=== PATIENT | female | born 1990 | race Caucasian/White ===

== ENCOUNTER 2021-05-29 07:00 | Day surgery (SDC) | payer BC ==
[2021-05-29] VITALS (12 sets, daily range): BP systolic 96–131; BP diastolic 57–79; PULSE 72–96; TEMP 98.6
[~2021-05-29] VITALS: Ht 162.7 cm; Wt 70.5 kg
--- NOTE | 2021-05-29 07:20 | NUR ---
35.6, G1L0 here for cerclage removal. Ambulatory to LDR3 with spouse. Oriented to room and POC. Reports normal movement, and irregular ctx. Denies any LOF, VB. Changes into clean gown. EFM explained and placed. Assessment completed. VS obtained. Consent forms explained and signed.
[2021-05-29 07:38] LABS: BASO % 0.2 % (0.0-2.0); EOS % 0.2 % (0-4.0); GRAN # 4.3 (1.4-6.5); GRAN % 51.9 % (42.2-75.2); HEMOGLOBIN 11.4 g/dl (12.5-16.0); LYMPH # 3.4 (1.2-3.4); LYMPH % 40.6 % (20.0-51.0); MEAN CELL VOLUME 89 fl (80.0-100.0); MEAN CORPUSCULAR HEMOGLOBIN 29 pg (27.0-31.0); MEAN CORPUSCULAR HGB CONC 32 g/dl (33.0-37.0); MONO # 0.6 (0.1-0.6); MONO % 6.9 % (1.7-9.3); PLATELET COUNT 59 K/mm3 (130-400); RED BLOOD COUNT 3.95 M/mm3 (4.10-5.30); REDCELL DISTRIBUTION WIDTH-CV 14.1 % (11.5-14.5)
[2021-05-29 07:39] LABS: HEMATOCRIT 35.3 % (37.0-47.0)
[2021-05-29] MEDS ORDERED: DIABETA 2.5MG2.5 MG PO (07:41)
[2021-05-29] MEDS ORDERED: PREDNISONE20 MG PO (07:41)
--- NOTE | 2021-05-29 08:10 | NUR ---
0810- EFM off. To OR suite via bed.
--- NOTE | 2021-05-29 08:41 | NUR ---
0841- To LDR3 via bed. Monitors applied. Report fromCaleb Esquivel CRNA. 0845- Dr. Perdomo at bedside. POC reviewed with patient and SO who verbalize understanding.
--- NOTE | 2021-05-29 10:30 | NUR ---
Dr. Perdomo remains on unit and reviews strips. Okay to dischage patient home with instructions.
--- NOTE | 2021-05-29 10:35 | NUR ---
FHR reactive. GBS obtained. EFM off.
--- NOTE | 2021-05-29 10:50 | NUR ---
Discharge instructions reviewed with patient and SO who verbalize understanding. Ambulatory off unit with private vehicle.
== END 2021-05-29 10:50 | disposition home or self-care (01) ==
LOC: SDCO 07:00 → LDR 07:00 → SDCO 10:50
PROVIDERS: Obstetrics & Gynecology
DX: O34.33 Maternal care for cervical incompetence, third trimester (principal); O24.415 Gestational diabetes mellitus in pregnancy, controlled by oral hypoglycemic drugs; Z3A.35 35 weeks gestation of pregnancy; Z20.822 Contact with and (suspected) exposure to COVID-19; Z79.899 Other long term (current) drug therapy
CPT/HCPCS: OP; J0702; J7120

== ENCOUNTER 2021-05-30 08:00 | Outpatient (CLI) | payer BC ==
[~2021-05-30] VITALS: Ht 162.6 cm; Wt 70.5 kg
[~2021-05-30 08:00] MED LIST: DIABETA 2.5MG2.5 MG PO; PREDNISONE20 MG PO
--- NOTE | 2021-05-30 08:10 | NUR ---
Pt arrived on unit ambulatory for scheduled NST and second dose of betamethasone. Pt reports occasional contractions but no pain with them, denies any leaking of fluid or vaginal bleeding and reports normal movement. EFM and toco monitor started. Vital signs WNL. Plan of care for NST, labs and beta reviewed.
[2021-05-30 08:36] LABS: BASO % 0.1 % (0.0-2.0); GRAN # 5.4 (1.4-6.5); GRAN % 67.9 % (42.2-75.2); HEMOGLOBIN 10.7 g/dl (12.5-16.0); LYMPH # 2.1 (1.2-3.4); LYMPH % 25.6 % (20.0-51.0); MEAN CELL VOLUME 91 fl (80.0-100.0); MEAN CORPUSCULAR HEMOGLOBIN 29 pg (27.0-31.0); MEAN CORPUSCULAR HGB CONC 31 g/dl (33.0-37.0); MONO # 0.5 (0.1-0.6); PLATELET COUNT 61 K/mm3 (130-400); RED BLOOD COUNT 3.74 M/mm3 (4.10-5.30); REDCELL DISTRIBUTION WIDTH-CV 14.2 % (11.5-14.5)
[2021-05-30 08:38] LABS: HEMATOCRIT 34.1 % (37.0-47.0)
--- NOTE | 2021-05-30 08:38 | NUR ---
Spoke with Dr. Perdomo. Lab results and FHR tracing reviewed. Orders for discharge after 20 more minutes of monitoring.
[2021-05-30 09:00] VITALS: BP 129/82; PULSE 107; TEMP 98.2
== END 2021-05-30 09:10 | disposition home or self-care (01) ==
LOC: LDRO 08:00 → LDR 08:00 → LDRO 09:10
PROVIDERS: Obstetrics & Gynecology
DX: O36.8330 Maternal care for abnormalities of the fetal heart rate or rhythm, third trimester, not applicable or unspecified (principal)
CPT/HCPCS: OP; J0702

== ENCOUNTER 2021-06-04 00:58 | Inpatient (IN) | payer BC ==
[2021-06-04] VITALS (36 sets, daily range): BP systolic 101–136; BP diastolic 55–87; PULSE 59–120; TEMP 97.6–98.9
[~2021-06-04] VITALS: Ht 162.6 cm; Wt 68.6 kg
--- NOTE | 2021-06-04 01:30 | NUR ---
0110 G1 at 36.5 weeks gestation to LDR3 with c/o contractions since 2099. She had a cerclage placed at 23 weeks for a shortened cervix. This was removed on 05/29. At the time of removal the patient was dilated to 2cm. At this time she recieved betamethasone and a GBS culture was collected and is negative. 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 EFMs explained and applied. Patient reports good movement. FHR 130 bpm and reactive. CTX q6-8 minutes. VSS. SVE 4/90 with a bulgy bag. Patient denies leaking of fluid or vaginal bleeding. She is uncomfortable with contractions and breathing through them. Plan of care reviewed with patient and spouse. She is aware that she can not get an epidural if her platelets are low.
[2021-06-04 02:07] LABS: EOS % 0.1 % (0-4.0); GRAN # 5.5 (1.4-6.5); GRAN % 58.6 % (42.2-75.2); HEMATOCRIT 37.5 % (37.0-47.0); HEMOGLOBIN 12.3 g/dl (12.5-16.0); LYMPH # 3.1 (1.2-3.4); LYMPH % 32.4 % (20.0-51.0); MEAN CELL VOLUME 88 fl (80.0-100.0); MEAN CORPUSCULAR HEMOGLOBIN 29 pg (27.0-31.0); MEAN CORPUSCULAR HGB CONC 33 g/dl (33.0-37.0); MEAN PLATELET VOLUME 14.1 fl (7.4-10.4); MONO # 0.8 (0.1-0.6); MONO % 8.5 % (1.7-9.3); RED BLOOD COUNT 4.25 M/mm3 (4.10-5.30); REDCELL DISTRIBUTION WIDTH-CV 14.1 % (11.5-14.5)
[2021-06-04 02:22] LABS: PLATELET COUNT 69 K/mm3 (130-400)
--- NOTE | 2021-06-04 07:00 | NUR ---
Rests in bed, alert. Dr. Miller here, visits with patient. [address] Miller. Moderate amount of clear fluid noted. States dilated to 7. Pad changed, and annika-care given.
--- NOTE | 2021-06-04 08:00 | NUR ---
Rests in bed, alert. 0802 Stadol 1 mg given iv as ordered and per request. Breathes through contractions.
--- NOTE | 2021-06-04 09:00 | NUR ---
Ambulates to the bathroom and back. Stands at bedside rocking.
--- NOTE | 2021-06-04 09:30 | NUR ---
Stands at the bedside.0303 Dr. Miller here, visits with patient. Vag exam done, dilated to eight.
--- NOTE | 2021-06-04 10:00 | NUR ---
1008 Stadol 1 mg iv given as ordered.
--- NOTE | 2021-06-04 10:20 | NUR ---
Pitocin 0.5 alana units iv started as ordered.
--- NOTE | 2021-06-04 10:45 | NUR ---
Unable to put 1.5 mu of pitocin in [facility].
--- NOTE | 2021-06-04 12:28 | NUR ---
Dr. Miller here, visits with patient. Vag exam done, reports complete. Pushes with patient.
--- NOTE | 2021-06-04 12:30 | NUR ---
Pushes with contractions. Tolerates fairly well. Variables noted with pushing. heart tones down in the nintys for [address] Miller aware of the variables.
--- NOTE | 2021-06-04 13:00 | NUR ---
Repositioned to left side with peanut ball. Continues to push with contractions. Dr. Miller aware of variables down in the 80s-90s with pushing.
--- NOTE | 2021-06-04 14:00 | NUR ---
Dr. Miller here, pushes with patient. 1410 Prepped for delivery. 1421 Spontaneous delivery of baby boy by Dr. Miller. 1424 Spontaneous delivery of placenta by Dr. Miller. Pitocin started at 333ccs an hour as ordered and per protocol. Repair work done by Dr. Miller. Medication given by anesthesia per Dr. Miller, see notes please. 1430 Methergine 0.2 mg im given left anterior thigh.
--- NOTE | 2021-06-04 14:45 | NUR ---
Rests in bed, alert. Denies any needs at this time.
--- NOTE | 2021-06-04 15:15 | NUR ---
Rests in bed with eyes closed. Resperations even and unlabored.
--- NOTE | 2021-06-04 16:00 | NUR ---
Rests in bed, alert. Denies any needs at this time.
[2021-06-04 16:11] LABS: BASO % 0.2 % (0.0-2.0); GRAN # 16.2 (1.4-6.5); GRAN % 85.3 % (42.2-75.2); HEMOGLOBIN 11.3 g/dl (12.5-16.0); LYMPH # 1.5 (1.2-3.4); LYMPH % 7.9 % (20.0-51.0); MEAN CELL VOLUME 89 fl (80.0-100.0); MEAN CORPUSCULAR HEMOGLOBIN 28 pg (27.0-31.0); MEAN CORPUSCULAR HGB CONC 32 g/dl (33.0-37.0); MONO # 1.2 (0.1-0.6); MONO % 6.2 % (1.7-9.3); PLATELET COUNT 75 K/mm3 (130-400); RED BLOOD COUNT 3.98 M/mm3 (4.10-5.30); REDCELL DISTRIBUTION WIDTH-CV 13.7 % (11.5-14.5)
[2021-06-04 16:12] LABS: HEMATOCRIT 35.3 % (37.0-47.0)
--- NOTE | 2021-06-04 16:30 | NUR ---
Attempts to get up out of bed. States feeling like she is going to faint. Laid back down in bed. Head of bed lowered, cool wash cloth to forhead with fan on. Continues to be alert.
--- NOTE | 2021-06-04 18:00 | NUR ---
Ambulates to the bathroom. Voids moderate amount of clear yellow urine. Per-care given. Ice pack with tucks pads on. To room 207 via wheel chair. Assist to bed. Oriented to room. Reminded to call when needed to get up to the bathroom.
[2021-06-04] MEDS ORDERED: PERCOCET 325 MG1 TA2 PO (18:11)
[2021-06-04] MEDS ORDERED: MOTRIN 800800 MG/TAB PO (18:11)
[2021-06-04] MEDS ORDERED: PREDNISONE10 MG PO (18:13)
[2021-06-05 00:20] VITALS: BP 114/78; PULSE 92; TEMP 98.1
--- NOTE | 2021-06-05 07:00 | NUR ---
Note upon assessment fundus shifted to right. Education provided on frequent emptying of bladder, once every two hours while awake. Patient reports she has not emptied bladder since midnight. Assisted up to bathroom, annika care provided, teaching done on annika care. Patient c/o pain in left hip upon getting out of bed, and trying to lift leg off ground while on toilet. Denies any need for pain meds @ this time. Spontaneous void noted. Fundus back to midline at umbilicus following void.
[2021-06-05 07:05] VITALS: BP 110/64; PULSE 92; TEMP 97.5
--- NOTE | 2021-06-05 10:45 | NUR ---
Abiola Dawn RN, architectural sales consultant, in for consult @ this time.
[2021-06-05 15:48] LABS: BASO % 0.1 % (0.0-2.0); EOS % 0.1 % (0-4.0); GRAN # 9.9 (1.4-6.5); GRAN % 82.2 % (42.2-75.2); LYMPH # 1.5 (1.2-3.4); LYMPH % 12.4 % (20.0-51.0); MEAN CELL VOLUME 91 fl (80.0-100.0); MEAN CORPUSCULAR HGB CONC 32 g/dl (33.0-37.0); MEAN PLATELET VOLUME 13.8 fl (7.4-10.4); MONO # 0.6 (0.1-0.6); MONO % 4.6 % (1.7-9.3); PLATELET COUNT 69 K/mm3 (130-400); REDCELL DISTRIBUTION WIDTH-CV 14.1 % (11.5-14.5)
[2021-06-05 15:49] LABS: HEMATOCRIT 28.2 % (37.0-47.0); HEMOGLOBIN 8.9 g/dl (12.5-16.0); MEAN CORPUSCULAR HEMOGLOBIN 29 pg (27.0-31.0)
[2021-06-05 17:40] VITALS: BP 121/73; PULSE 84; TEMP 98.1
[2021-06-05 19:25] VITALS: BP 100/53; PULSE 75; TEMP 98.1
[2021-06-06 07:27] VITALS: BP 111/69; PULSE 82; TEMP 98
[2021-06-06 10:25] LABS: BASO % 0.3 % (0.0-2.0); EOS # 0.1 (0.0-0.7); EOS % 0.7 % (0-4.0); GRAN # 6.5 (1.4-6.5); GRAN % 59.4 % (42.2-75.2); HEMATOCRIT 28.9 % (37.0-47.0); HEMOGLOBIN 8.9 g/dl (12.5-16.0); LYMPH # 3.7 (1.2-3.4); LYMPH % 33.5 % (20.0-51.0); MEAN CELL VOLUME 92 fl (80.0-100.0); MEAN CORPUSCULAR HEMOGLOBIN 28 pg (27.0-31.0); MEAN CORPUSCULAR HGB CONC 31 g/dl (33.0-37.0); MONO # 0.6 (0.1-0.6); MONO % 5.3 % (1.7-9.3); PLATELET COUNT 72 K/mm3 (130-400); RED BLOOD COUNT 3.15 M/mm3 (4.10-5.30); REDCELL DISTRIBUTION WIDTH-CV 14.2 % (11.5-14.5)
--- NOTE | 2021-06-06 12:03 | NUR ---
PATIENT PREFORMED SITZ BATH
== END 2021-06-06 13:40 | disposition home or self-care (01) | DRG 768 ==
LOC: LDRO 00:58 → LDR 01:44 → OB 18:00
PROVIDERS: Obstetrics & Gynecology; ADMIT Obstetrics & Gynecology
PROC: 10E0XZZ Delivery of Products of Conception, External Approach (ICD-10-PCS; principal; 2021-06-04)
PROC: 0DQR0ZZ Repair Anal Sphincter, Open Approach (ICD-10-PCS; 2021-06-04)
DX: O60.23X0 Term delivery with preterm labor, third trimester, not applicable or unspecified (principal); Z37.0 Single live birth; O99.12 Other diseases of the blood and blood-forming organs and certain disorders involving the immune mechanism complicating childbirth; D69.3 Immune thrombocytopenic purpura; O26.873 Cervical shortening, third trimester; O70.21 Third degree perineal laceration during delivery, IIIa; O24.425 Gestational diabetes mellitus in childbirth, controlled by oral hypoglycemic drugs; O62.0 Primary inadequate contractions; O99.62 Diseases of the digestive system complicating childbirth; K21.9 Gastro-esophageal reflux disease without esophagitis; O75.89 Other specified complications of labor and delivery; O69.1XX0 Labor and delivery complicated by cord around neck, with compression, not applicable or unspecified; Z3A.36 36 weeks gestation of pregnancy
CPT/HCPCS: J0595; J2210; J2590; J3010; J7120; J7512

== ENCOUNTER → 2023-04-13 | Outpatient (CLI) | payer BC ==
[~2023-04-13] MED LIST changes: +MOTRIN 800800 MG/TAB PO; +PERCOCET 325 MG1 TA2 PO; +PREDNISONE10 MG PO
== END ==
LOC: MC.RAD 09:15
DX: N64.52 Nipple discharge (principal)